=== PATIENT | male | born 1990 | race Native Hawaiian/Other Pacific Islander ===

== ENCOUNTER 2018-07-15 14:06 | Emergency (ER) | payer OTHER ==
[~2018-07-15] VITALS: Ht 165.1 cm; Wt 77.1 kg
[2018-07-15 14:06] VITALS: TEMP 98.9
[2018-07-15 15:28] VITALS: BP 158/97
== END 2018-07-15 15:44 | disposition short-term general hospital (02) ==
LOC: EDBD 14:06 → ED 14:06
DX: S67.198A Crushing injury of other finger, initial encounter (principal); S67.02XA Crushing injury of left thumb, initial encounter; S61.218A Laceration without foreign body of other finger without damage to nail, initial encounter; W29.8XXA Contact with other powered hand tools and household machinery, initial encounter; Y92.69 Other specified industrial and construction area as the place of occurrence of the external cause
CPT/HCPCS: 96365; 96375; 96376; 99285; J0696; J2270